=== PATIENT | female | born 1950 | race Caucasian/White ===

== ENCOUNTER → 2016-04-25 | Outpatient (REF) | payer MEDICARE, OTHER ==
[~2016-04-25] MED LIST: ASPI81TA51 PO; ATEN25TA PO; TYLE325T5 PO
== END ==
LOC: M LAB REF 16:27
PROVIDERS: ATTEND Internal Medicine
DX: Z01.89 Encounter for other specified special examinations (principal)

== ENCOUNTER → 2016-05-21 | Outpatient (CLI) | payer MEDICARE, OTHER ==
--- NOTE | 2016-05-21 10:05 | REPMRS ---
Patient History The patient states she has not had a clinical breast exam in over a year. Patient is postmenopausal and had first child at age 30. Family history of colorectal cancer in father at age 82 and breast cancer in maternal aunt at age 80. Digital Woman Screen Mammo: May 21, 2016 - Exam #: [id number] Bilateral CC and MLO view(s) were taken. Technologist: Ban Salgado, Technologist Prior study comparison: February 09, 2015, bilateral digital mammo screening bilat, performed at [facility], [place]. February 03, 2014, bilateral digital mammo screening bilat, performed at [facility], [place]. FINDINGS: The breast tissue is heterogeneously dense. This may lower the sensitivity of mammography. There has been no change in the appearance of the mammogram from the prior studies. There is a moderate amount of residual fibroglandular tissue which is fairly symmetric. There is no interval development of dominant mass, areas of architectural distortion, or clustered microcalcification typical of malignancy. ASSESSMENT: BI-RADS/ACR category 1 mammogram. Negative. Recommendation Routine screening mammogram in 1 year (for women over age 40). This mammogram was interpreted with the aid of an FDA-approved computer-aided dectection system. Electronically Signed By: Edgar Pillai MD 05/21/16 [id number]
--- NOTE | 2016-05-23 09:37 | DEXA ---
AP SPINE L1 - L4 0.979 -1.7 0.4 LT FEMUR TOTAL 0.796 -1.7 0.0 RT FEMUR TOTAL 0.847 -1.3 0.4 TOTAL BODY TOTAL OTHER DUAL FEMUR FRAX* ASSESSMENT Risk factors: Mother hip fracture, history of adult fracture. 10 year probability of fracture Major osteoporotic fracture 30.1 % Hip fracture 5.3 % COMMENTS: There is low bone density of the spine and hips. The density of the left hip has decreased 7.0% since 08/25/2013. The density of the right hip has decreased 0.7% since 08/25/2013. The decreased density of the spine does represent a significant change. The decreased density of the left hip does represent a significant change. The decreased density of the right hip does not represent a significant change. The density of the spine has increased 5.5% since the initial exam on 2001. The spine density has decreased 3.1% since the most recent exam on 08/25/2013. FOLLOW-UP: Recommendation for the next bone density exam: 2 years. LUIS F
== END ==
LOC: M WHC 08:59
PROVIDERS: ATTEND Internal Medicine
DX: Z12.31 Encounter for screening mammogram for malignant neoplasm of breast (principal); M89.9 Disorder of bone, unspecified; Z78.0 Asymptomatic menopausal state
CPT/HCPCS: 77080; G0202

== ENCOUNTER 2017-08-06 08:22 | Day surgery (SDC) | payer MEDICARE, OTHER ==
[2017-08-06] MEDS: NS 1,000 ML IV (09:00)
[2017-08-06] MEDS ORDERED: LIDOCAINE 2% INJ 100 MG/5 ML SDV (FOR ANES.) As Ordered (09:21)
[2017-08-06] MEDS ORDERED: PROPOFOL 200 MG/20 ML VIAL As Ordered (09:21)
== END 2017-08-06 10:08 | disposition home or self-care (01) ==
LOC: M OPP 08:22
DX: Z12.11 Encounter for screening for malignant neoplasm of colon (principal); Z80.0 Family history of malignant neoplasm of digestive organs; K64.8 Other hemorrhoids; I10 Essential (primary) hypertension; R06.02 Shortness of breath; M19.90 Unspecified osteoarthritis, unspecified site; F41.9 Anxiety disorder, unspecified; Z86.73 Personal history of transient ischemic attack (TIA), and cerebral infarction without residual deficits; Z78.0 Asymptomatic menopausal state; R06.83 Snoring; Z88.1 Allergy status to other antibiotic agents; Z88.8 Allergy status to other drugs, medicaments and biological substances; Z79.82 Long term (current) use of aspirin; Z79.899 Other long term (current) drug therapy; Z83.71 Family history of colonic polyps
CPT/HCPCS: G0105

== ENCOUNTER → 2020-10-22 | Outpatient (CLI) | payer MEDICARE, OTHER ==
[~2020-10-22] MED LIST changes: +ALEN35TA56 PO; +AMLO1TAB24 PO; +BISO5TAB14 PO; +CALC500T49 PO; +CELE10TA PO; +MULT1TAB10 PO; +VITA100067 PO
--- NOTE | 2020-10-22 11:48 | REPMRS ---
Patient History The patient states she has not had a clinical breast exam in over a year. Patient is postmenopausal, has history of other cancer at age 70, and had first child at age 30. Family history of colorectal cancer at age 82 in father, breast cancer at age 80 in maternal aunt. Tomosynthesis is performed. Volpara breast density is c. Tyrer-zick lifetime risk of breast cancer 7.7%. Patient states no breast complaints today. Patient has signed MRS History Sheet. Digital Woman Screen Mammo: October 22, 2020 - Exam #: [id number] Bilateral CC and MLO view(s) were taken. Technologist: Delphine Rosales, Technologist Prior study comparison: May 21, 2016, digital woman screen mammo performed at [facility]. February 09, 2015, bilateral digital mammo screening bilat, performed at [facility]. FINDINGS: The breast tissue is heterogeneously dense. This may lower the sensitivity of mammography. There has been no change in the appearance of the mammogram from the prior studies. There is a moderate amount of residual fibroglandular tissue which is fairly symmetric. There is no interval development of dominant mass, areas of architectural distortion, or clustered microcalcification typical of malignancy. Assessment: BI-RADS/ACR category 1 mammogram. Negative Mammogram. Recommendation Routine screening mammogram in 1 year (for women over age 40). This mammogram was interpreted with the aid of an FDA-approved computer-aided dectection system. Electronically Signed By: Edgar Pillai MD 10/22/20 [id number]
== END ==
LOC: M WHC 11:01
PROVIDERS: ATTEND Internal Medicine
DX: Z12.31 Encounter for screening mammogram for malignant neoplasm of breast (principal); Z80.0 Family history of malignant neoplasm of digestive organs; Z80.3 Family history of malignant neoplasm of breast; Z85.9 Personal history of malignant neoplasm, unspecified

== ENCOUNTER → 2021-11-08 | Outpatient (CLI) | payer MEDICARE, OTHER | LOC: M WHC 10:01 | PROVIDERS: ATTEND Internal Medicine | DX: Z12.31 Encounter for screening mammogram for malignant neoplasm of breast (principal); Z13.820 Encounter for screening for osteoporosis; M85.88 Other specified disorders of bone density and structure, other site; M85.851 Other specified disorders of bone density and structure, right thigh; M85.852 Other specified disorders of bone density and structure, left thigh ==

== ENCOUNTER → 2022-06-04 | Outpatient (REF) | payer MEDICARE, OTHER ==
[2022-06-04 16:37] LABS: PERCENT SATURATION 31.7 % (13.2-45.0)
== END ==
LOC: M LAB REF 16:09
PROVIDERS: ATTEND Internal Medicine
DX: D64.9 Anemia, unspecified (principal)

== ENCOUNTER 2022-12-04 11:11 | Day surgery (SDC) | payer MEDICARE, OTHER ==
[~2022-12-04] VITALS: Ht 154.9 cm; Wt 49.4 kg
[~2022-12-04 11:11] MED LIST changes: +CALC-190 PO; +CITA20TA6 PO; +ECOT81TA5 PO; +NS 1,000 ML IV ONE; +VITA100093 PO; +VITMTA PO
[2022-12-04] MEDS ORDERED: propofoL 200 MG/20 ML VIAL As Ordered ONE ×2 (12:17→12:18)
[2022-12-04] MEDS ORDERED: LIDOCAINE 2% 100MG/5ML SDV (FOR ANES.) As Ordered ONE (12:18)
[2022-12-04 12:33] VITALS: TEMP 97.1
[2022-12-04 13:12] VITALS: BP 146/65; O2SAT 100
== END 2022-12-04 13:12 | disposition home or self-care (01) ==
LOC: M OPP 11:11
PROVIDERS: ATTEND Surgery
DX: Z12.11 Encounter for screening for malignant neoplasm of colon (principal); Z80.0 Family history of malignant neoplasm of digestive organs; Z79.82 Long term (current) use of aspirin; Z79.899 Other long term (current) drug therapy; Z88.1 Allergy status to other antibiotic agents

== ENCOUNTER → 2023-01-06 | Outpatient (CLI) | payer MEDICARE, OTHER ==
[~2023-01-06] MED LIST changes: -NS 1,000 ML IV ONE
== END ==
LOC: M WHC 14:51
PROVIDERS: ATTEND Internal Medicine
DX: Z12.31 Encounter for screening mammogram for malignant neoplasm of breast (principal); R92.343 Mammographic extreme density, bilateral breasts

== ENCOUNTER → 2024-03-18 | Outpatient (CLI) | payer MEDICARE, OTHER | LOC: M WHC 10:52 | PROVIDERS: ATTEND Internal Medicine | DX: Z12.31 Encounter for screening mammogram for malignant neoplasm of breast (principal); R92.333 Mammographic heterogeneous density, bilateral breasts ==